=== PATIENT | female | born 1995 | race Caucasian/White ===

== ENCOUNTER 2018-01-29 17:42 | Emergency (ER) | payer SELFPAY ==
[~2018-01-29] VITALS: Ht 160 cm; Wt 72.2 kg
[2018-01-29] MEDS ORDERED: PROMETHAZINE 25 MG/ML, 1ML IM ONE (18:30)
[2018-01-29] MEDS ORDERED: PROMETHAZINE 25 MG/ML, 1ML ONE (18:59)
[2018-01-29 19:35] VITALS: BP 121/73
== END 2018-01-29 19:38 | disposition home or self-care (01) ==
LOC: ED 18:20
DX: G43.909 Migraine, unspecified, not intractable, without status migrainosus (principal)
CPT/HCPCS: 70450; 96372; 99284; J2550